=== PATIENT | female | born 1955 | race Caucasian/White ===

== ENCOUNTER 2019-05-16 06:57 | Day surgery (SDC) | payer OTHER ==
[~2019-05-16] VITALS: Ht 160 cm; Wt 105.4 kg
[2019-05-16 07:45] VITALS: Ht 160 cm; Wt 105.4 kg
[2019-05-16] MEDS ORDERED: CALCIUM PO (07:52)
[2019-05-16] MEDS ORDERED: METFORMIN PO (07:52)
[2019-05-16] MEDS ORDERED: HYDROCHLOROTHIAZIDE PO (07:52)
[2019-05-16] MEDS ORDERED: INSULIN SQ (07:52)
[2019-05-16] MEDS ORDERED: METOPROLOL PO (07:52)
[2019-05-16] MEDS ORDERED: FOSINOPRIL PO (07:52)
[2019-05-16] MEDS ORDERED: SIMVASTATIN PO (07:52)
[2019-05-16 08:01] VITALS: BP 165/70; PULSE 67; RESP 18
--- NOTE | 2019-05-16 08:14 | PREAC ---
Date/Time of Note Date/Time of Note DATE: 05/16/19 TIME: 08:13 Anesthesia Eval and Record Evaluation Time Pre-Procedure Interview DATE: 05/16/19 TIME: 08:13 Age 64 Sex female NPO: 8 hrs Preoperative diagnosis Screening Planned procedure Colonoscopy Past Medical History Past Medical History: Includes Cardio: HTN, Dyslipidemia Endo: Diabetes GI: Obesity Surgery & Anesthesia Issues No known issue Meds Anticoagulation: No Beta Arpit within 24 hr: No Reason Beta Arpit not given: Pt. not on B-Arpit Reported Medications [Simvastatin] No Conflict Check, PO 05/16/19 [Metoprolol] No Conflict Check, PO 05/16/19 [Metformin] No Conflict Check, PO 05/16/19 [Insulin] No Conflict Check, SQ 05/16/19 [Hydrochlorothiazide] No Conflict Check, PO 05/16/19 [Fosinopril] No Conflict Check, PO 05/16/19 [Calcium] No Conflict Check, PO 05/16/19 Meds reviewed: Yes Allergies Coded Allergies: No Known Allergy (Unverified , 05/16/19) Allergies Reviewed: Yes Labs/Studies Labs Reviewed: Reviewed by anesthesiologist test: N/A Studies: ECG (n/a), CXR (n/a) Pre-procedure Exam Last vitals Vital Signs Date Temp Pulse Resp B/P (MAP) Pulse Ox O2 O2 Flow FiO2 Time Delivery Rate 05/16/19 98.8 67 18 165/70 96 Room Air 08:01 (101) Airway: Adequate mouth opening, Adequate thyromental dist Mallampati: Mallampati II Teeth: Normal Lung: Normal Heart: Normal ASA Physical Status ASA physical status: 3 Emergency: None Planned Anesthetic General/MAC: MAC Planned Pain Management Parenteral pain med Pre-operative Attestations Prior to commencing anesthesia and surgery, the patient was re-evaluated, there was verification of: *The patient's identity *The results of appropriate recent lab work and preoperative vital signs *The above evaluation not changing prior to induction *Anesthetic plan, risk benefits, alternative and complications discussed with patient/family; questions answered; patient/family understands, accepts and w ishes to proceed. ELSY STARKS MD May 16, 2019 08:14
[2019-05-16] MEDS ORDERED: PROPOFOL 40 ML ONE (08:47)
--- NOTE | 2019-05-16 08:53 | PAC ---
Date/Time of Note Date/Time of Note DATE: 05/16/19 TIME: 08:53 Post-Anesthesia Notes Post-Anesthesia Note Last documented vital signs Vital Signs Date Temp Pulse Resp B/P (MAP) Pulse Ox O2 O2 Flow FiO2 Time Delivery Rate 05/16/19 98.8 67 18 165/70 96 Room Air 08:51 (101) Activity: WNL Respiratory function: WNL Cardiovascular function: WNL Mental status: Baseline Pain reasonably controlled: Yes Hydration appropriate: Yes Nausea/Vomiting absent: Yes ELSY STARKS MD May 16, 2019 08:53
[2019-05-16 09:19] VITALS: BP 142/67; PULSE 61; RESP 19
== END 2019-05-16 14:07 | disposition home or self-care (01) ==
LOC: GIL 06:57
PROVIDERS: ATTEND Internal Medicine Gastroenterology
DX: Z12.11 Encounter for screening for malignant neoplasm of colon (principal); D12.7 Benign neoplasm of rectosigmoid junction; K64.4 Residual hemorrhoidal skin tags; I10 Essential (primary) hypertension; E11.9 Type 2 diabetes mellitus without complications; E78.5 Hyperlipidemia, unspecified; Z79.84 Long term (current) use of oral hypoglycemic drugs; Z79.4 Long term (current) use of insulin
CPT/HCPCS: 82962; 88305; 88342